=== PATIENT | male | born 1995 | race Caucasian/White ===

== ENCOUNTER 2021-11-30 18:41 | Emergency (ER) | payer BC ==
[2021-11-30 21:28] LABS: BLOOD UREA NITROGEN,BUN 12 mg/dL (7.0-18.0); CHLORIDE,CL 104 mmol/L (98-107); GLUCOSE RANDOM 92 mg/dL (74-106); POTASSIUM,K 3.6 mmol/L (3.5-5.1); SODIUM,NA 144 mmol/L (136-148)
== END 2021-11-30 21:58 | disposition home or self-care (01) ==
LOC: MW.ED 18:41
DX: K92.2 Gastrointestinal hemorrhage, unspecified (principal)
CPT/HCPCS: 36415; 80053; 85025; 85610; 99284